=== PATIENT | male | born 1970 | race Caucasian/White ===

== ENCOUNTER 2016-11-24 11:11 | Inpatient (IN) | payer OTHER ==
[2016-11-24 12:21] VITALS: BMI 26.1
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
[2016-11-24] MEDS ORDERED: IBUPROFEN 400 MG TABLET (FP) PO PRN (15:45)
[2016-11-24] MEDS ORDERED: chlordiazePOXIDE HCL 25 MG CAPSULE PO ONE (15:45)
[2016-11-24] MEDS ORDERED: diphenhydrAMINE HCL 50 MG CAPSULE PO PRN (15:45)
[2016-11-24] MEDS ORDERED: P-EPHED 60MG/TRIPROLIDI 2.5MG TABLET PO PRN (15:45)
[2016-11-24] MEDS ORDERED: MAG HYDROX/AL HYDROX/SIMETH 30 ML UNIT-DOSE CUP PO PRN (15:45)
[2016-11-24] MEDS ORDERED: MENTHOL/PHENOL 1 EACH UD MM PRN (15:45)
[2016-11-24] MEDS ORDERED: hydrOXYzine PAMOATE 50 MG CAPSULE (FP) PO PRN (15:45)
[2016-11-24] MEDS ORDERED: ACETAMINOPHEN 325 MG TABLET (FP) PO PRN (15:45)
[2016-11-24] MEDS ORDERED: LOPERAMIDE HCL 2 MG CAPSULE PO PRN (15:45)
[2016-11-24] MEDS ORDERED: chlordiazePOXIDE HCL 25 MG CAPSULE PO PRN (15:45)
[2016-11-24] MEDS ORDERED: MAGNESIUM CITRATE 300 ML BOTTLE PO PRN (15:45)
[2016-11-24] MEDS ORDERED: NICOTINE POLACRILEX 2 MG GUM BC PRN (15:45)
[2016-11-24] MEDS ORDERED: guaiFENesin/D-METHORPHAN HB 10 ML UNIT-DOSE CUPS PO PRN (15:45)
[2016-11-24] MEDS ORDERED: MAGNESIUM HYDROX 2400MG/30ML ORAL SUSPENSION 30 ML CUP PO PRN (15:45)
[2016-11-24] MEDS: chlordiazePOXIDE HCL 25 MG CAPSULE PO SCH ×2 (19:19→22:48)
[2016-11-24] MEDS: THIAMINE HCL 100 MG TABLET (FP) PO SCH (22:48)
[2016-11-25] MEDS: chlordiazePOXIDE HCL 25 MG CAPSULE PO SCH ×5 (05:30→22:08)
--- NOTE | 2016-11-25 09:23 | EKG ---
Test Reason : Blood Pressure : / mmHG Vent. Rate : 065 BPM Atrial Rate : 065 BPM P-R Int : 130 ms QRS Dur : 088 ms QT Int : 416 ms P-R-T Axes : 066 085 074 degrees QTc Int : 432 ms NORMAL SINUS RHYTHM NORMAL ECG NO PREVIOUS ECGS AVAILABLE Confirmed by NISHA RAM, TALYA ([id number]) on 11/25/2016 9:23:33 AM Referred By: Confirmed By:TALYA CAMERON MD
[2016-11-25] MEDS ORDERED: ALBUTEROL SO4 6.7 GM HFA INHALER IH PRN (09:56)
[2016-11-25 10:14] LABS: MCH 34.6 pg (25.7-33.7); MCHC 34.5 g/dl (32.0-35.9); MEAN CELL VOLUME 100.5 fl (80-96); MEAN PLT VOLUME 9.1 fl (7.5-11.1); PLATELET COUNT 187 K/MM3 (134-434); RDW 15.6 % (11.9-15.9); WHITE BLOOD COUNT 5.5 K/mm3 (4.0-10.0)
[2016-11-25 10:32] LABS: ALBUMIN 3.2 g/dl (3.4-5.0); ANION GAP 8 (8-16); CO2 27 mmol/L (21-32); GLUCOSE,RANDOM 81 mg/dL (74-106); SGOT/AST 41 U/L (15-37)
[2016-11-25 10:34] LABS: ALK PHOS 102 U/L (45-117); BILIRUBIN,TOTAL 0.5 mg/dL (0.2-1.0); SGPT/ALT 71 U/L (12-78)
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
[2016-11-25] MEDS: DARUNAVIR ETHANOLATE 800 MG TAB PO SCH (11:24)
[2016-11-25] MEDS: PRENATAL VITAMINS W/ FOLIC ACID TABLET (FP) PO SCH (11:24)
[2016-11-25] MEDS: RITONAVIR 100 MG TABLET PO SCH (11:25)
[2016-11-25] MEDS: SULFAMETHOXAZOLE/TRIMETHOPRIM 800MG/160MG D.S. TABLET PO SCH (11:25)
[2016-11-25] MEDS: BUDESONIDE/FORMETEROL FUMARATE 80/4.5 mcg INHALER IH SCH ×2 (11:26→22:08)
[2016-11-25] MEDS: EMTRICITABINE 200MG/TENOFOVIR 300MG PO SCH (11:26)
[2016-11-25] MEDS: NICOTINE 14 MG/24 HOURS TOPICAL PATCH TD SCH (11:27)
--- NOTE | 2016-11-25 12:24 | PN ---
[facility] CIWA - CIWA Score Nausea/Vomitin-No Nausea/No Vomiting Muscle Tremors: 3 Anxiety: 4-Mod. Anxious/Guarded Agitation: 3 Paroxysmal Sweats: 3 Orientation: 2-Disoriented Date<2 days Tacttile Disturbances: 2-Mild Itch/Numbness/Burn Auditory Disturbances: 0-None Visual Disturbances: 2-Mild Sensitivity Headache: 0-None Present CIWA-Ar Total Score: 19 S Progress Note (SOAP) Subjective: Body Aches, Sweating, Fatigue, Anxious. Objective: PT. A & O X 2 (DISORIENTED ABOUT DAY / DATE). NO ACUTE DISTRESS. 11/25/16 12:22 Vital Signs Temperature 97.7 F 11/25/16 09:16 Pulse Rate 75 11/25/16 09:16 Respiratory Rate 18 11/25/16 09:16 Blood Pressure 112/79 11/25/16 09:16 O2 Sat by Pulse Oximetry (%) Laboratory Tests 11/25/16 11/25/16 07:00 07:00 WBC 5.5 RBC 4.09 Hgb 14.2 Hct 41.2 MCV 100.5 H MCH 34.6 H MCHC 34.5 RDW 15.6 D Plt Count 187 D MPV 9.1 D Sodium 143 Potassium 4.0 Chloride 108 H Carbon Dioxide 27 Anion Gap 8 BUN 15 D Creatinine 1.0 D Creat Clearance w eGFR > 60 Random Glucose 81 D Calcium 9.0 Total Bilirubin 0.5 AST 41 H D ALT 71 D Alkaline Phosphatase 102 Total Protein 7.0 Albumin 3.2 L LABS NOTED. RPR, UA RESULTS PENDING. 11/25/16 12:23 Assessment: 11/25/16 12:22 WITHDRAWAL SYMPTOMS. Plan: CONTINUE DETOX.
[2016-11-25] MEDS: valACYclovir HCL 500 MG TABLET (FP) PO SCH ×2 (13:00→22:08)
[2016-11-25] MEDS ORDERED: traZODone HCL 50 MG TABLET (FP) PO SCH ×2 (22:00)
[2016-11-25] MEDS: THIAMINE HCL 100 MG TABLET (FP) PO SCH (22:08)
[2016-11-25] MEDS: risperiDONE 1 MG TABLET (FP) PO SCH (22:08)
[2016-11-26] MEDS: chlordiazePOXIDE HCL 25 MG CAPSULE PO SCH ×2 (05:45→10:22)
[2016-11-26] MEDS: SULFAMETHOXAZOLE/TRIMETHOPRIM 800MG/160MG D.S. TABLET PO SCH (10:23)
[2016-11-26] MEDS: SERTRALINE HCL 50 MG TABLET (FP) PO SCH (10:23)
[2016-11-26] MEDS: DARUNAVIR ETHANOLATE 800 MG TAB PO SCH (10:23)
[2016-11-26] MEDS: valACYclovir HCL 500 MG TABLET (FP) PO SCH ×2 (10:23→22:03)
[2016-11-26] MEDS: PRENATAL VITAMINS W/ FOLIC ACID TABLET (FP) PO SCH (10:23)
[2016-11-26] MEDS: risperiDONE 1 MG TABLET (FP) PO SCH ×2 (10:23→22:03)
[2016-11-26] MEDS: NICOTINE 14 MG/24 HOURS TOPICAL PATCH TD SCH (10:24)
--- NOTE | 2016-11-26 10:36 | PN ---
Psychiatric Progress Note Vital Signs: Vital Signs Period Temp Pulse Resp BP Sys/Watkins Pulse Ox Last 24 Hr 97.0 F-98.6 F 86-104 18-20 102-120/60-74 Date of Session: 11/26/16 Chief Complaint:: Insomnia HPI: Patient reprots taking prior to admission Trazodone 200mg po qhs wityh good response Current Medications: Active Medications Generic Name Dose Route Start Last Admin Trade Name Freq PRN Reason Stop Dose Admin Acetaminophen 650 mg 11/24/16 15:45 Tylenol - PO Q4H PRN FEVER OR PAIN Al Hydroxide/Mg Hydroxide 30 ml 11/24/16 15:45 Mylanta Oral Suspension - PO Q6H PRN DYSPEPSIA Albuterol Sulfate 2 puff 11/25/16 09:56 Ventolin Hfa Inhaler - IH Q4H PRN SHORT OF BREATH/WHEEZING Budesonide/Formoterol Fumarate 2 puff 11/25/16 10:45 11/25/16 22:08 Symbicort 80/4.5mcg - IH 2 puff BID SHELIA Administration Chlordiazepoxide HCl 10 mg 11/27/16 17:00 Librium - PO 11/28/16 11:01 [id number] SHELIA Chlordiazepoxide HCl 25 mg 11/24/16 15:45 Librium - PO 11/27/16 15:44 Q4H PRN WITHDRAWAL(CONT SUBST) Chlordiazepoxide HCl 25 mg 11/25/16 17:00 11/26/16 10:22 Librium - PO 11/26/16 11:01 25 mg [id number] SHELIA Administration Chlordiazepoxide HCl 15 mg 11/26/16 17:00 Librium - PO 11/27/16 11:01 [id number] SHELIA Darunavir 800 mg 11/25/16 10:00 11/26/16 10:23 Prezista - PO 800 mg DAILY SHELIA Administration Diphenhydramine HCl 50 mg 11/24/16 15:45 Benadryl - PO HSMR1 PRN INSOMNIA Emtricitabine/Tenofovir 1 tab 11/25/16 11:00 11/25/16 11:26 Truvada PO 1 tab DAILY SHELIA Administration Eucalyptus/Menthol/Phenol/Sorbitol 1 each 11/24/16 15:45 Cepastat Lozenge - MM Q4H PRN SORE THROAT Guaifenesin 10 ml 11/24/16 15:45 Robitussin Dm - PO Q6H PRN COUGH Hydroxyzine Pamoate 50 mg 11/24/16 15:45 Vistaril - PO Q4H PRN AGITATION Ibuprofen 400 mg 11/24/16 15:45 Motrin - PO Q6H PRN SEVERE PAIN Loperamide HCl 4 mg 11/24/16 15:45 Imodium - PO Q6H PRN DIARRHEA Magnesium Citrate 300 ml 11/24/16 15:45 Citroma - PO Q48H PRN CONSTIPATION Magnesium Hydroxide 30 ml 11/24/16 15:45 Milk Of Magnesia - PO DAILY PRN CONSTIPATION Nicotine 14 mg 11/25/16 10:00 11/26/16 10:24 Nicoderm Patch - TD 14 mg DAILY SHELIA Administration Nicotine Polacrilex 2 mg 11/24/16 15:45 Nicorette Gum - BC Q2H PRN NICOTINE REPLACEMENT RX Multivit/Folic Acid/Iron 1 tab 11/25/16 10:00 11/26/16 10:23 Vitamins (Sjr) - PO 1 tab DAILY SHELIA Administration Pseudoephedrine/Triprolidine 1 combo 11/24/16 15:45 Actifed - PO TID PRN NASAL CONGESTION Risperidone 1 mg 11/25/16 22:00 11/26/16 10:23 Risperdal - PO 1 mg BID SHELIA Administration Ritonavir 100 mg 11/25/16 11:00 11/25/16 11:25 Norvir - PO 100 mg DAILY SHELIA Administration Sertraline HCl 50 mg 11/26/16 10:00 11/26/16 10:23 Zoloft - PO 50 mg DAILY SHELIA Administration Thiamine HCl 100 mg 11/24/16 22:00 11/25/16 22:08 Vitamin B1 - PO 100 mg HS SHELIA Administration Trazodone HCl 50 mg 11/25/16 22:00 11/25/16 22:08 Desyrel - PO 50 mg HS SHELIA Administration Trimethoprim/Sulfamethoxazole 1 each 11/25/16 11:00 11/26/16 10:23 Bactrim Ds - PO 1 each DAILY SHELIA Administration Valacyclovir HCl 500 mg 11/25/16 12:45 11/26/16 10:23 Valtrex - PO 500 mg BID SHELIA Administration Medication(s) Change(s): Trazodone 200mg po qhs Mental Status Exam - Mental Status Exam Alert and Oriented to: Person Cognitive Function: Fair Patient Appearance: Unkempt Mood: Anxious Affect: Mood Congruent Patient Behavior: Cooperative Speech Pattern: Appropriate Voice Loudness: Mildly Loud Thought Process: Goal Oriented Thought Disorder: Being Controlled Hallucinations: Denies Suicidal Ideation: Denies Homicidal Ideation: Denies Insight/Judgement: Fair Sleep: Difficulty falling asleep Appetite: Fair Muscle strength/Tone: Normal Gait/Station: Normal Additional Comments: Trazodone 200mg po qhs Psychiatric Treatment Plan - Problem List (1) Alcohol dependence Current Visit: Yes (2) Cannabis dependence Current Visit: Yes (3) Cocaine dependence Current Visit: Yes (4) Nicotine dependence Current Visit: Yes (5) Schizoaffective disorder Current Visit: Yes (6) Weight decreased Current Visit: No (7) Mood disorder Current Visit: No (8) Nicotine abuse Current Visit: No (9) Drug-induced mood disorder Current Visit: Yes Initial treatment plan: Trazodone 200mg po qhs
[2016-11-26] MEDS: BUDESONIDE/FORMETEROL FUMARATE 80/4.5 mcg INHALER IH SCH ×2 (10:50→22:03)
[2016-11-26] MEDS: EMTRICITABINE 200MG/TENOFOVIR 300MG PO SCH (10:50)
[2016-11-26] MEDS: RITONAVIR 100 MG TABLET PO SCH (10:50)
--- NOTE | 2016-11-26 12:09 | PN ---
S CIWA - CIWA Score Nausea/Vomitin Muscle Tremors: 2 Anxiety: 5 Agitation: 5 Paroxysmal Sweats: 1-Minimal Palms Moist Orientation: 2-Disoriented Date<2 days Tacttile Disturbances: 3-Moderate Itch/Numb/Burn Auditory Disturbances: 0-None Visual Disturbances: 0-None Headache: 0-None Present CIWA-Ar Total Score: 20 BHS Progress Note (SOAP) Subjective: Interrupted sleep, Anxious, Sweating. Objective: PT. A & O X 2 (DISORIENTED ABOUT DAY / DATE). PT., OBSERVED AMBULATING ON UNIT. NO ACUTE DISTRESS. PT. OBSERVED TO BE AGITATED AND VERBALLY CONFRONTATIONAL WITH STAFF ON UNIT MULTIPLE TIMES DURING THE AM. PATIENT ADVISED THAT IF HE PERSISTS IN EXHIBITING CONFRONATIONAL AND VERBALLY ABUSIVE BEHAVIOR, THEN THAT MIGHT RESULT IN DISCHARGE FROM UNIT. PATIENT VERBALIZED UNDERSTANDING AND RECEPTIVE TO ADVISEMENT. MASK DESIGNER Florin ARMSTRONG PRESENT IN ROOM AT TIME IN WHICH CONVERSATION TOOK PLACE. 11/26/16 12:05 Vital Signs Temperature 97.0 F L 11/26/16 09:43 Pulse Rate 86 11/26/16 09:43 Respiratory Rate 20 11/26/16 09:43 Blood Pressure 107/72 11/26/16 09:43 O2 Sat by Pulse Oximetry (%) Laboratory Tests 11/25/16 11/25/16 07:00 07:00 WBC 5.5 RBC 4.09 Hgb 14.2 Hct 41.2 MCV 100.5 H MCH 34.6 H MCHC 34.5 RDW 15.6 D Plt Count 187 D MPV 9.1 D Sodium 143 Potassium 4.0 Chloride 108 H Carbon Dioxide 27 Anion Gap 8 BUN 15 D Creatinine 1.0 D Creat Clearance w eGFR > 60 Random Glucose 81 D Calcium 9.0 Total Bilirubin 0.5 AST 41 H D ALT 71 D Alkaline Phosphatase 102 Total Protein 7.0 Albumin 3.2 L LABS NOTED. RPR RESULT PENDING. 11/26/16 12:09 11/26/16 12:10 Assessment: 11/26/16 12:08 WITHDRAWAL SYMPTOMS. Plan: CONTINUE DETOX.
[2016-11-26] MEDS: chlordiazePOXIDE 5 MG CAPSULE PO SCH ×2 (17:10→22:03)
[2016-11-26 18:55] LABS: URINE APPEARANCE CLEAR; URINE BILIRUBIN NEGATIVE (NEGATIVE); URINE BLOOD NEGATIVE (NEGATIVE); URINE COLOR LTYELLOW; URINE GLUCOSE (UA) NEGATIVE (NEGATIVE); URINE KETONE NEGATIVE (NEGATIVE); URINE LEUK ESTERASE NEGATIVE (NEGATIVE); URINE NITRITE NEGATIVE (NEGATIVE); URINE PROTEIN NEGATIVE (NEGATIVE); URINE UROBILINOGEN NEGATIVE mg/dL (0.2-1.0)
[2016-11-26] MEDS ORDERED: traZODone HCL 100 MG TABLET (FP) PO SCH (22:00)
[2016-11-26] MEDS: THIAMINE HCL 100 MG TABLET (FP) PO SCH (22:03)
[2016-11-27] MEDS: chlordiazePOXIDE 5 MG CAPSULE PO SCH (05:48)
--- NOTE | 2016-11-27 08:58 | DS ---
[facility] Detox Discharge Summary Admission Date: 11/24/16 Discharge Date: 11/27/16 - History Present History: Alcohol Dependence, Cannabis Dependence, Cocaine Dependence - Physical Exam Results Vital Signs: Vital Signs Temperature 97.8 F 11/27/16 06:06 Pulse Rate 90 11/27/16 06:06 Respiratory Rate 16 11/27/16 06:06 Blood Pressure 118/70 11/27/16 06:06 O2 Sat by Pulse Oximetry (%) - Treatment Hospital Course: Detox Protocol Followed, Detoxed Safely, Responded well - Medication Discharge Medications: Ambulatory Orders Albuterol Sulfate Inhaler - [Ventolin Hfa *Inhaler*] 1 - 2 inh IH Q4H PRN Emtricitabine/Tenofovir [Truvada Tablet] 1 each PO DAILY 06/08/12 Salmeterol/Fluticasone [Advair 250Mcg/50Mcg] 1 inh PO BID 06/08/12 Sulfamethoxazole/Trimethoprim [Bactrim *Ds*] 1 tab PO DAILY 06/08/12 Trazodone HCl 200 mg PO HS 06/08/12 Darunavir Ethanolate [Prezista -] 800 mg PO DAILY 11/30/14 Mvit,Calcium,Iron,Mins/A.acids [K-[place] Double Strength Capsule] 1 each PO DAILY 11/30/14 Ritonavir [Norvir] 100 mg PO DAILY 11/30/14 Cyanocobalamin Vit B-12 Inj. [Redisol] 1,000 mcg IJ WEEKLY 11/24/16 Risperidone [Risperdal] 2 mg PO HS 11/24/16 Sertraline HCl [Zoloft] 50 mg PO DAILY 11/24/16 Valacyclovir HCl [Valtrex -] 500 mg PO BID 11/24/16 Risperidone [Risperdal] 2 mg PO HS #30 tablet 11/25/16 Sertraline HCl [Zoloft -] 50 mg PO DAILY #30 tablet 11/25/16 Trazodone HCl 50 mg PO HS #30 tablet 11/25/16 - Diagnosis (1) Alcohol dependence Current Visit: Yes Status: Chronic Qualifiers: Substance use status: uncomplicated Qualified Code(s): F10.20 - Alcohol dependence, uncomplicated (2) Cannabis dependence Current Visit: Yes Status: Chronic (3) Cocaine dependence Current Visit: Yes Status: Chronic Qualifiers: Substance use status: uncomplicated Qualified Code(s): F14.20 - Cocaine dependence, uncomplicated (4) Nicotine dependence Current Visit: Yes Status: Chronic Qualifiers: Nicotine product type: cigarettes Substance use status: uncomplicated Qualified Code(s): F17.210 - Nicotine dependence, cigarettes, uncomplicated (5) Asthma Current Visit: Yes Status: Chronic (6) Human immunodeficiency virus infection Current Visit: Yes Status: Chronic (7) Schizoaffective disorder Current Visit: Yes Status: Chronic - AMA Did Patient Leave Against Medical Advice: No (pt d/c'ed early feeling better)
[2016-11-27] MEDS: SERTRALINE HCL 50 MG TABLET (FP) PO SCH (09:31)
[2016-11-27] MEDS: risperiDONE 1 MG TABLET (FP) PO SCH (09:31)
[2016-11-27] MEDS: PRENATAL VITAMINS W/ FOLIC ACID TABLET (FP) PO SCH (09:31)
[2016-11-27] MEDS: valACYclovir HCL 500 MG TABLET (FP) PO SCH (09:31)
[2016-11-27] MEDS: SULFAMETHOXAZOLE/TRIMETHOPRIM 800MG/160MG D.S. TABLET PO SCH (09:31)
[2016-11-27] MEDS: DARUNAVIR ETHANOLATE 800 MG TAB PO SCH (09:31)
[2016-11-27] MEDS: BUDESONIDE/FORMETEROL FUMARATE 80/4.5 mcg INHALER IH SCH (09:33)
[2016-11-27 10:15] VITALS: BP 110/72; PULSE 99; TEMP 97
[2016-11-27] MEDS ORDERED: chlordiazePOXIDE HCL 10 MG CAPSULE PO SCH (17:00)
== END 2016-11-27 09:35 | disposition home or self-care (01) | DRG 774 ==
LOC: YASAS 11:11 → Y3N 18:33
PROVIDERS: ADMIT Internal Medicine; ATTEND Internal Medicine
PROC: HZ2ZZZZ Detoxification Services for Substance Abuse Treatment (ICD-10-PCS; principal; 2016-11-27)
DX: F10.20 Alcohol dependence, uncomplicated (principal); F14.20 Cocaine dependence, uncomplicated; F12.20 Cannabis dependence, uncomplicated; F17.210 Nicotine dependence, cigarettes, uncomplicated; F25.9 Schizoaffective disorder, unspecified; G47.00 Insomnia, unspecified; J45.909 Unspecified asthma, uncomplicated; Z21 Asymptomatic human immunodeficiency virus [HIV] infection status; M13.861 Other specified arthritis, right knee
CPT/HCPCS: 36415; 80053; 81003; 85027; 86593; 93005; 93010; J2794